=== PATIENT | female | born 1960 | race Caucasian/White ===

== ENCOUNTER 2021-10-16 08:22 | Outpatient (CLI) | payer BC | END 2021-10-16 08:23 | disposition home or self-care (01) | LOC: CSHRAD 08:22 | PROVIDERS: ATTEND Neurological Surgery | DX: M54.16 Radiculopathy, lumbar region (principal); Z98.890 Other specified postprocedural states | CPT/HCPCS: 72100 ==

== ENCOUNTER 2021-12-09 13:07 | Outpatient (CLI) | payer BC | END 2021-12-09 13:08 | disposition home or self-care (01) | LOC: CSHCT 13:07 | PROVIDERS: ATTEND Neurological Surgery | DX: N20.2 Calculus of kidney with calculus of ureter (principal); K76.0 Fatty (change of) liver, not elsewhere classified | CPT/HCPCS: 74176 ==